=== PATIENT | female | born 1995 | race African-American/Black ===

== ENCOUNTER 2022-06-27 08:30 | Emergency (ER) | payer MEDICAID, OTHER ==
[~2022-06-27] VITALS: Ht 162.6 cm; Wt 45.7 kg
[2022-06-27 09:02] VITALS: BP 115/72
[2022-06-27] MEDS ORDERED: IBUP600T27 PO (09:35)
[2022-06-27] MEDS ORDERED: CEPH-322 PO (09:35)
[2022-06-27] MEDS ORDERED: CEPH-510 PO (10:13)
[2022-06-29] MEDS ORDERED: BACDST PO (11:12)
== END 2022-06-27 10:35 | disposition home or self-care (01) ==
LOC: ER 08:30
DX: S81.801A Unspecified open wound, right lower leg, initial encounter (principal); L03.115 Cellulitis of right lower limb; L02.415 Cutaneous abscess of right lower limb; X58.XXXA Exposure to other specified factors, initial encounter; Y93.89 Activity, other specified; Y92.89 Other specified places as the place of occurrence of the external cause; Y99.8 Other external cause status
CPT/HCPCS: 87077; 87186; 87205